=== PATIENT | female | born 1985 | race Hispanic/Latino ===

== ENCOUNTER → 2018-05-10 | Day surgery (SDC) | payer OTHER ==
[2018-05-08 14:31] LABS: BASOPHILS % 0.5 % (0.0-1.0); EOSINOPHILS # (AUTO) 0.1 (0.0-0.4); EOSINOPHILS % 1.7 % (0.0-6.0); HEMATOCRIT 39.4 % (34.2-44.1); HEMOGLOBIN 13.3 g/dL (12.0-16.0); LYMPHOCYTES # (AUTO) 2.8 (1.0-3.2); LYMPHOCYTES % 34.5 % (18.0-39.1); MEAN CORPUSCULAR HEMOGLOBIN 30.5 pg (28-32); MEAN CORPUSCULAR HGB CONC 33.8 g/dL (31-35); MEAN CORPUSCULAR VOLUME 90.4 fL (81-99); MONOCYTES # (AUTO) 0.6 (0.2-0.8); MONOCYTES % 6.7 % (4.4-11.3); NEUTROPHILS # (AUTO) 4.6 (2.1-6.9); NEUTROPHILS % 56.5 % (38.7-80.0); PLATELET COUNT 266 x10e3/uL (140-360); RED BLOOD COUNT 4.36 x10e6/uL (3.6-5.1)
[~2018-05-10] MED LIST: ACETAMINOPHEN 1000 MG/100 ML IV ONE; ACETAMINOPHEN/CODEINE 300MG - 30MG TAB ONE; BUPIVACAINE 0.25% 30ML SDV INJ ONE; DEXAMETHASONE SOD PHOS INJ 4 MG/ML VIAL ONE; FENTANYL CITRATE/PF 100MCG/2 ML INJ ONE; GLYCOPYRROLATE INJ 1MG/ 5 ML SYR ONE; KETOROLAC TROMETHAMINE 30 MG/ML VIAL ONE; LIDOCAINE HCL 2% LOCAL INJ 5 ML SDV VIAL INJ ONE; MIDAZOLAM HCL 2 MG/2 ML VIAL ONE; MORPHINE SULFATE INJ 10 MG/ML ONE; NEOSTIGMINE 5 MG/5ML SYR ONE; ONDANSETRON HCL INJ 2 MG/ML VIAL ONE; PROPOFOL IV EMULSION 10 MG/ML 20 ML VIAL ONE; ROCURONIUM BROMIDE 10 MG/ML 5ML VIAL ONE; SEVOFLURANE INHAL SOLN 250 ML PEN BTL ONE
--- NOTE | 2018-05-10 14:00 | Operative Report ---
DATE OF PROCEDURE: May 10, 2018 PREOPERATIVE DIAGNOSIS 1. Pelvic pain. 2. Bilateral complex ovarian cysts. POSTOPERATIVE DIAGNOSIS 1. Pelvic pain. 2. Bilateral complex ovarian cysts. PROCEDURE PERFORMED 1. Laparoscopy. 2. Bilateral excision of ovarian endometrioma and ablation of endometriosis. COMPLICATIONS: None. ESTIMATED BLOOD LOSS: Minimal. PROCEDURE: The patient was taken to the OR where general anesthesia was achieved. She was prepped and draped in the normal sterile fashion and placed in the dorsal supine position with an indwelling Coto's catheter placed inside the bladder for drainage. Two Allis clamps were applied to the umbilicus to demarco the umbilicus. An infraumbilical skin incision was made with a scalpel and the subcutaneous tissue dissected with the hemostat. A10-mm bladeless trocar and cannula with a scope inside was passed through the abdominal wall into the abdominal cavity. The trocar was removed, and the scope was slid through the sleeve into the abdominal cavity. The abdomen was insufflated with carbon dioxide gas. Two other ports were made in the right side of the abdomen after making a 5-mm skin incision with the scalpel, and a 5-mm bladeless trocar and cannula was passed through the abdominal wall into the abdominal cavity. The trocar was removed, and using a grasper the following findings: Uterus looks normal. Tubes look normal. Large bilateral ovarian endometrioma. The right endometrioma was adherent to the rectum and the right pelvic side wall and the posterior wall of the uterus. Then that endometrioma was adherent to the pelvic colon and the lateral pelvic side wall. Minimal ovarian tissue was noted on top of the ovarian cysts. Endometriosis was also seen on the peripheral peritoneum anterior to the bladder. The pouch of Ba was completely obstructed with the endometrium. Using the Harmonic scalpel, the right ovarian cyst was excised and dissected off the pelvic side wall, the posterior wall of the uterus and the rectum, and the ovarian tissue was conserved. The left endometrioma using the Harmonic scalpel was also shaved off the pelvic colon and shaved off the posterior wall of the uterus, could not be removed from the pelvic side wall. However, the cavity was opened, suctioned of the endometriotic and chocolate material using the suction irrigation, and the endometrioma capsule was stripped off the ovarian tissue and removed. Hemostasis was secured using the Harmonic scalpel. The Surgicel was applied, and Interceed was applied. Multiple suction irrigations of peritoneal cavity were performed using saline, and 200 mL of saline was left in the pelvis for floating tissues and to reduce adhesions. At the end of the procedure, hemostasis was adequate and abdomen was deflated, instruments removed from the abdomen after removing the ovarian tissues through the intra-abdominal incision using an Endo Catch, and a 5-mm scope was used in the peripheral port. Tissues were removed through the Endo Catch without difficulty and sent to the pathologist. The abdomen was deflated from the carbon dioxide gas, and rectus fascia was approximated at the umbilicus using Vicryl 2-0 and the skin was closed with subcuticular Vicryl 4-0 at the umbilicus. The three ports were closed with Dermabond. Patient tolerated the procedure well. Lap, needle and instrument count was correct x2 at the end of the procedure. Job#: [id number]
== END | disposition home or self-care (01) ==
LOC: OR 05:23
PROVIDERS: ATTEND Obstetrics & Gynecology
DX: N83.12 Corpus luteum cyst of left ovary (principal); N83.11 Corpus luteum cyst of right ovary; N83.202 Unspecified ovarian cyst, left side; N83.201 Unspecified ovarian cyst, right side; N80.1 Endometriosis of ovary; J45.909 Unspecified asthma, uncomplicated; F41.9 Anxiety disorder, unspecified; Z01.812 Encounter for preprocedural laboratory examination
CPT/HCPCS: 36415; 58662; 84702; 85025; 88305; J1100; J1885; J2001; J2250; J2270; J2405; J3490

== ENCOUNTER 2020-11-18 22:22 | Emergency (ER) | payer SELFPAY ==
[~2020-11-18] VITALS: Ht 162.6 cm; Wt 65.8 kg
[2020-11-18 23:44] LABS: BASOPHILS % 0.2 % (0.0-1.0); EOSINOPHILS % 0.4 % (0.0-6.0); HEMOGLOBIN 14.3 g/dL (12.0-16.0); LYMPHOCYTES # (AUTO) 1.7 (1.0-3.2); LYMPHOCYTES % 20.4 % (18.0-39.1); MEAN CORPUSCULAR HEMOGLOBIN 30.2 pg (28-32); MEAN CORPUSCULAR VOLUME 88.6 fL (81-99); MONOCYTES # (AUTO) 0.4 (0.2-0.8); MONOCYTES % 4.1 % (4.4-11.3); NEUTROPHILS # (AUTO) 6.3 (2.1-6.9); NEUTROPHILS % 74.5 % (38.7-80.0); PLATELET COUNT 221 x10e3/uL (140-360); RED BLOOD COUNT 4.74 x10e6/uL (3.6-5.1); RED CELL DISTRIBUTION WIDTH 12.5 % (11.7-14.4)
[2020-11-19 00:03] LABS: ALANINE AMINOTRANSFERASE 139 IU/L (0-55); ALBUMIN 4.1 g/dL (3.5-5.0); ALBUMIN/GLOBULIN RATIO 1.1 (0.8-2.0); ALKALINE PHOSPHATASE 157 IU/L (40-150); ANION GAP 17.1 mmol/L (8-16); BLOOD UREA NITROGEN 10 mg/dL (7-26); BUN/CREATININE RATIO 12 (6-25); CALCIUM 9.2 mg/dL (8.4-10.2); CARBON DIOXIDE 22 mmol/L (22-29); CHLORIDE 105 mmol/L (98-107); CREATININE, SERUM 0.85 mg/dL (0.57-1.11); EST GLOMERULAR FILTRATION RATE > 60 ML/MIN (60-); GLUCOSE 107 mg/dL (74-118); POTASSIUM 3.1 mmol/L (3.5-5.1); SODIUM 141 mmol/L (136-145)
[2020-11-19] MEDS ORDERED: SODIUM CHLORIDE 0.9% 1000ML 1,000 ML IV SCH (00:15)
[2020-11-19 00:32] VITALS: BP 116/75
== END 2020-11-19 00:36 | disposition home or self-care (01) ==
LOC: ER 22:32
DX: U07.1 COVID-19 (principal); J45.909 Unspecified asthma, uncomplicated
CPT/HCPCS: 36415; 71045; 80053; 84702; 85025; 85379; 93005; 99284

== ENCOUNTER → 2020-11-20 | Outpatient (CLI) | payer OTHER | LOC: RAD 12:03 | PROVIDERS: ATTEND Family Medicine | DX: J18.9 Pneumonia, unspecified organism (principal) | CPT/HCPCS: 71046 ==